=== PATIENT | male | born 1975 | race Two or more races ===

== ENCOUNTER 2023-11-26 08:05 | Outpatient (CLI) | payer OTHER | END 2023-11-26 08:17 | disposition home or self-care (01) | LOC: SONOGRAMA 08:05 | DX: R10.84 Generalized abdominal pain (principal) ==

== ENCOUNTER 2024-05-22 08:26 | Outpatient (CLI) | payer OTHER | END 2024-05-22 08:32 | disposition home or self-care (01) | LOC: SONOGRAMA 08:26 | DX: L02.31 Cutaneous abscess of buttock (principal) ==

== ENCOUNTER 2024-07-28 07:15 | Outpatient (CLI) | payer OTHER | END 2024-07-28 07:19 | disposition home or self-care (01) | LOC: MRI 07:15 | DX: L02.33 Carbuncle of buttock (principal); L03.327 Acute lymphangitis of buttock | CPT/HCPCS: 72195 ==